=== PATIENT | male | born 1955 | race Asian ===

== ENCOUNTER 2024-03-21 08:52 | Inpatient (IN) | payer OTHER ==
[~2024-03-21] VITALS: Ht 170.2 cm; Wt 53.1 kg
[2024-03-21 08:57] VITALS: BP_SYST 116; PULSE 85; RESP 20; TEMP 98.3; O2SAT 98
[2024-03-21] MEDS: NACL 0.9% 1,000 ML IV ONE (09:38)
[2024-03-21 09:49] LABS: BASOPHILS # (AUTO) 0.1 K/uL (0.0-0.2); BASOPHILS % (AUTO) 1.2 % (0.0-2.0); EOSINOPHILS # (AUTO) 0.7 K/uL (0.0-0.4); EOSINOPHILS % (AUTO) 11.6 % (0.0-4.0); HEMATOCRIT 40.8 % (36-54); HEMOGLOBIN 13.8 g/dL (14.0-18.0); LYMPHOCYTES # (AUTO) 2.2 K/uL (1.0-5.5); LYMPHOCYTES % (AUTO) 36.6 % (20.5-51.5); MEAN CORPUSCULAR HEMOGLOBIN 31 pg (27-31); MEAN CORPUSCULAR HGB CONC 34 % (32-36); MEAN CORPUSCULAR VOLUME 90 fL (79.0-98.0); MONOCYTES # (AUTO) 0.5 K/uL (0.0-1.0); NEUTROPHILS # (AUTO) 2.5 K/uL (1.8-7.7); NEUTROPHILS % (AUTO) 42.6 % (40.0-70.0); PLATELET COUNT (AUTO) 202 K/uL (130-430); RED BLOOD CELL COUNT(AUTO) 4.52 MIL/uL (4.2-6.2); RED CELL DISTRIBUTION WIDTH 12.8 % (9.0-15.0)
[2024-03-21 10:01] LABS: ALANINE AMINOTRANSFERASE 26 U/L (12-78); ALBUMIN 3.4 g/dL (3.4-4.8); ANION GAP 7 (5-15); ASPARTATE AMINOTRANSFERASE 13 U/L (10-37); CALCIUM 8.9 mg/dL (8.4-11.0); CARBON DIOXIDE 30 mmol/L (23-29); CHLORIDE 100 mmol/L (98-107); CREATININE 0.87 mg/dL (0.55-1.30); GFR AFRICAN AMERICAN 112 mL/min (>90); GFR NON AFRICAN-AMERICAN 92 mL/min (>90); GLUCOSE 247 mg/dL (74-106); POTASSIUM 3.6 mmol/L (3.5-5.1); SODIUM SERUM 137 mmol/L (136-145); TOTAL BILIRUBIN 0.6 mg/dL (0.0-1.0); TOTAL PROTEIN, SERUM 6.5 g/dL (6.4-8.3); UREA NITROGEN, BLOOD 23 mg/dL (8-21)
[2024-03-21 10:03] LABS: BILIRUBIN,DIRECT 0.1 mg/dL (0.0-0.3)
[2024-03-21 13:03] LABS: BILIRUBIN,URINE NEGATIVE (NEGATIVE); BLOOD, URINE NEGATIVE (NEGATIVE); CLARITY/URINE CLEAR (CLEAR); COLOR,URINE YELLOW (YELLOW); GLUCOSE,URINE 2+ (NEGATIVE); KETONES,URINE 3+ (NEGATIVE); LEUKOCYTE ESTERASE ,URINE NEGATIVE (NEGATIVE); NITRITE, URINE NEGATIVE (NEGATIVE); PH,URINE 5.5 (5.0-8.0); PROTEIN URINE NEGATIVE (NEGATIVE); UROBILINOGEN,URINE 0.2 (0.2-1.0)
[2024-03-21 13:39] LABS: BACTERIA,URINE FEW /HPF (None Seen); RBC,URINE 0-3 /HPF (0-3); WBC,URINE 0-3 /HPF (0-3)
[2024-03-21] MEDS ORDERED: GLIM4TAB37 PO (13:43)
[2024-03-21] MEDS ORDERED: INSU100V9 SQ (13:58)
[2024-03-21] MEDS ORDERED: TAMS-11 PO (13:58)
[2024-03-21] MEDS ORDERED: METF-379 PO (13:58)
[2024-03-21] MEDS: D5/0.45 NS 1,000 ML IV ONE (16:16)
[2024-03-21] MEDS ORDERED: HYDROcodone/ACETAMIN 5-325 MG TAB (NORCO/ VICODIN) PO PRN (17:00)
[2024-03-21] MEDS ORDERED: ONDANSETRON HCL 4 MG/2 ML VIAL IVP PRN (17:00)
[2024-03-21] MEDS ORDERED: LORazepam 2 MG/ML VIAL IVP PRN (17:00)
[2024-03-21] MEDS ORDERED: HYDROcodone/ACETAMIN 10-325 MG TAB PO PRN (17:00)
[2024-03-21] MEDS ORDERED: ACETAMINOPHEN 325 MG TABLET PO PRN (17:00)
[2024-03-21] MEDS ORDERED: NALOXONE HCL 0.4 MG/ML AMP (NARCAN) IVP PRN ×2 (17:00)
[2024-03-21 18:03] VITALS: BP_SYST 111; PULSE 85; RESP 16; TEMP 97.5; O2SAT 99
[2024-03-21] MEDS: INSULIN REGULAR, HUMAN 100 UNITS/ML, 3 ML VIAL (humuLIN R) SUBCUT PRN (18:24)
[2024-03-21 19:00] VITALS: O2SAT 96
[2024-03-21 20:00] VITALS: BP_SYST 101; PULSE 90; RESP 18; TEMP 97.9; O2SAT 96
[2024-03-21] MEDS: metFORMIN HCL 500 MG TABLET PO SCH (21:18)
[2024-03-21] MEDS: NORMAL SALINE 5 ML DISP.SYRIN IVF SCH (21:45)
[2024-03-22 01:01] VITALS: BP_SYST 106; PULSE 91; RESP 18; TEMP 98.1; O2SAT 96
[2024-03-22 03:13] VITALS: BP_SYST 102; PULSE 72; RESP 18; TEMP 97.1; O2SAT 99
[2024-03-22 06:33] LABS: BASOPHILS # (AUTO) 0.1 K/uL (0.0-0.2); BASOPHILS % (AUTO) 1.1 % (0.0-2.0); EOSINOPHILS # (AUTO) 0.6 K/uL (0.0-0.4); EOSINOPHILS % (AUTO) 11.8 % (0.0-4.0); HEMATOCRIT 40.5 % (36-54); HEMOGLOBIN 13.9 g/dL (14.0-18.0); LYMPHOCYTES # (AUTO) 2.1 K/uL (1.0-5.5); LYMPHOCYTES % (AUTO) 39.7 % (20.5-51.5); MEAN CORPUSCULAR HEMOGLOBIN 31 pg (27-31); MEAN CORPUSCULAR HGB CONC 34 % (32-36); MEAN CORPUSCULAR VOLUME 90 fL (79.0-98.0); MONOCYTES # (AUTO) 0.4 K/uL (0.0-1.0); MONOCYTES % (AUTO) 7.8 % (1.7-9.3); NEUTROPHILS # (AUTO) 2.1 K/uL (1.8-7.7); NEUTROPHILS % (AUTO) 39.6 % (40.0-70.0); PLATELET COUNT (AUTO) 197 K/uL (130-430); WHITE BLOOD COUNT (AUTO) 5.4 K/uL (4.8-10.8)
[2024-03-22 06:58] LABS: CALCIUM 8.3 mg/dL (8.4-11.0); CREATININE 0.78 mg/dL (0.55-1.30); POTASSIUM 3.5 mmol/L (3.5-5.1)
[2024-03-22 07:59] VITALS: BP_SYST 105; PULSE 76; RESP 12; TEMP 97.9; O2SAT 97
[2024-03-22] MEDS: TAMSULOSIN HCL 0.4 MG CAP PO SCH (08:54)
[2024-03-22] MEDS: GLIMEPIRIDE 2 MG TABLET PO SCH (08:55)
[2024-03-22 11:02] VITALS: BP_SYST 103; PULSE 78; RESP 16; TEMP 96.7; O2SAT 96
[2024-03-22] MEDS: CALCIUM GLUCONATE 2 GM in NS 100 ML IV ONE (12:21)
[2024-03-22 15:31] VITALS: BP_SYST 95; PULSE 80; RESP 16; TEMP 97; O2SAT 96
[2024-03-22 15:36] VITALS: BP_SYST 95; PULSE 80; RESP 16; TEMP 97; O2SAT 96
== END 2024-03-22 16:00 | disposition home or self-care (01) | DRG 641 ==
LOC: SED 08:52 → STU 13:14
PROVIDERS: ADMIT Preventive Medicine Preventive Medicine/Occupational Environmental Medicine; ATTEND Preventive Medicine Preventive Medicine/Occupational Environmental Medicine
DX: E86.0 Dehydration (principal); E46 Unspecified protein-calorie malnutrition; Z68.1 Body mass index [BMI] 19.9 or less, adult; E83.52 Hypercalcemia; N40.0 Benign prostatic hyperplasia without lower urinary tract symptoms; E11.65 Type 2 diabetes mellitus with hyperglycemia; R79.89 Other specified abnormal findings of blood chemistry; Z79.4 Long term (current) use of insulin; W18.30XD Fall on same level, unspecified, subsequent encounter
CPT/HCPCS: 36415; 70450-TC; 71045; 80048; 80076; 81000; 81001; 81015; 82948; 84484; 85025; 93005; 93306; 93880; 97112-GP; 97116-GP; 99285; G0378; J0610; J1815

== ENCOUNTER 2024-06-04 12:59 | Emergency (ER) | payer OTHER ==
[~2024-06-04] VITALS: Ht 162.6 cm; Wt 49.9 kg
[~2024-06-04 12:59] MED LIST: GLIM4TAB37 PO; INSU100V9 SQ; METF-379 PO; TAMS-11 PO
[2024-06-04 13:07] VITALS: BP_SYST 110; PULSE 99; RESP 16; TEMP 98.2; O2SAT 99
[2024-06-04 14:46] LABS: BASOPHILS % (AUTO) 0.5 % (0.0-2.0); EOSINOPHILS # (AUTO) 0.1 K/uL (0.0-0.4); EOSINOPHILS % (AUTO) 1.7 % (0.0-4.0); HEMATOCRIT 34.9 % (36-54); HEMOGLOBIN 12.3 g/dL (14.0-18.0); LYMPHOCYTES # (AUTO) 1.5 K/uL (1.0-5.5); LYMPHOCYTES % (AUTO) 21.6 % (20.5-51.5); MEAN CORPUSCULAR HEMOGLOBIN 31 pg (27-31); MEAN CORPUSCULAR HGB CONC 35 % (32-36); MEAN CORPUSCULAR VOLUME 88 fL (79.0-98.0); MONOCYTES # (AUTO) 0.8 K/uL (0.0-1.0); MONOCYTES % (AUTO) 11.4 % (1.7-9.3); NEUTROPHILS # (AUTO) 4.4 K/uL (1.8-7.7); NEUTROPHILS % (AUTO) 64.8 % (40.0-70.0); PLATELET COUNT (AUTO) 141 K/uL (130-430); RED BLOOD CELL COUNT(AUTO) 3.95 MIL/uL (4.2-6.2); RED CELL DISTRIBUTION WIDTH 13.1 % (9.0-15.0); WHITE BLOOD COUNT (AUTO) 6.8 K/uL (4.8-10.8)
[2024-06-04 15:07] LABS: ALBUMIN 3.2 g/dL (3.4-4.8); CALCIUM 9.4 mg/dL (8.4-11.0); CREATININE 0.87 mg/dL (0.55-1.30); POTASSIUM 4.1 mmol/L (3.5-5.1); TOTAL BILIRUBIN 0.6 mg/dL (0.0-1.0); TOTAL PROTEIN, SERUM 6.6 g/dL (6.4-8.3)
[2024-06-04 15:31] LABS: BILIRUBIN,DIRECT 0.2 mg/dL (0.0-0.3)
[2024-06-04] MEDS ORDERED: CLIN-22 PO (15:43)
[2024-06-04 15:46] LABS: INR 0.9 (0.80-1.20)
== END 2024-06-04 15:55 | disposition home or self-care (01) ==
LOC: SED 12:59
DX: T24.1 Burn of first degree of lower limb, except ankle and foot (principal); Z79.84 Long term (current) use of oral hypoglycemic drugs; Z79.899 Other long term (current) drug therapy; X10.0XXD Contact with hot drinks, subsequent encounter
CPT/HCPCS: 36415; 80048; 80076; 83605; 85025; 85610; 85730; 99283